=== PATIENT | female | born 1990 | race African-American/Black ===

== ENCOUNTER 2016-09-15 20:01 | Emergency (ER) | payer OTHER ==
[~2016-09-15] VITALS: Ht 165.1 cm; Wt 90.7 kg
[~2016-09-15 20:01] MED LIST: FERROUS SULFAT325 MG ORAL; FIORICET1 EA ORAL; FLAGYL500 MG ORAL; IBUPROFEN600 MG ORAL; TRAMADOL HCL50 MG ORAL; VIBRAMYCIN100 MG ORAL
--- NOTE | 2016-09-15 20:30 | Emergency Room Report ---
History of Present Illness General Chief Complaint: Flu Like Symptoms Source: Patient Present Illness HPI 26 YO female presents to the ED c/o Dry non productive cough , nasal congestion , and runny nose x 2 weeks with sore throat 9/10 in severity x 2 days. no fevers , reports chills. Pt states she has been coughing so regularly that she now has pain throughout the rib cage during episodes of coughing. denies recent travel or ill contacts. Pt. is 8 weeks . Pt denies neck pain or stiffness, denies abdominal pain, nausea, vomiting , constipation, diarrhea, urgency, dysuria or EVANS. Pt. states she has only been taking vitamins and hot water with lemon and mint. states she does not like to take OTC medications. Denies CP, Palpitations, LOC, AMS, dizziness, Changes in Vision, Sensation, paresthesias, or a sudden severe headache. Allergies: Coded Allergies: No Known Allergies (Unverified , 03/20/13) Patient History Past Medical History: see triage record Past Surgical History: none Pertinent Family History: none Last Menstrual Period: jul 21, 2016 Now: Yes : 5 Para: 2 Nursing Documentation-PMH Past Medical History: No Stated History Review of Systems All Other Systems: negative except mentioned in HPI Physical Exam Vital Signs Date Time Temp Pulse Resp B/P Pulse Ox O2 Delivery O2 Flow Rate FiO2 09/15/16 20:08 98.1 98 19 102/71 96 Room Air Sp02 EP Interpretation: reviewed, normal General Appearance: no apparent distress, alert, GCS 15, non-toxic Head: normocephalic, atraumatic Eyes: bilateral eye PERRL, bilateral eye normal inspection ENT: hearing grossly normal, normal pharynx, no angioedema, normal voice, nasal congestion - moderate nasal congestion, clear rhinorrhea noted, no TTP of the sinuses., pharyngeal erythema - pharyngeal erythema, no exudates, no tonsillar swelling, mild jacob stone appearance, no LAD. , other - left ear cerumen impaction Neck: full range of motion, no meningismus, supple/symm/no masses Respiratory: chest non-tender, lungs clear, normal breath sounds, no rhonchi, no respiratory distress, no retraction, no accessory muscle use, no wheezing, speaking full sentences, other - multiple bouts of dry highpitched coughs while attempting to answer ROS questions and durring PE. Cardiovascular #1: regular rate, rhythm, no edema Gastrointestinal: normal bowel sounds, non tender, soft, no guarding, no rebound Rectal: deferred Genitourinary: normal inspection, no CVA tenderness Musculoskeletal: back normal, gait/station normal, normal range of motion, non- tender, no calf tenderness Neurologic: alert, oriented x3, responsive, motor strength/tone normal, sensory intact, speech normal Psychiatric: judgement/insight normal, memory normal, mood/affect normal, no suicidal/homicidal ideation Skin: normal color, no rash, warm/dry, well hydrated Lymphatic: no adenopathy Medical Decision Making PA Attestation Dr. sanchez is my supervising Physician whom patient management has been discussed with. Diagnostic Impression: Primary Impression: Upper respiratory infection, acute ER Course Pt. presents to the ED c/o cough , nasal congestion, and runny nose x 2 weeks with sore throat x 2 days. no fevers, reports chills. Pt. is 8 weeks . Ddx considered but are not limited to URI, pneumonia, PE, strep pharyngitis, meningitis, pharyngitis Vital signs: Pt. is afebrile, the remaining VS are WNL H&PE are most consistent with URI- no meningeal signs, mild pharyngitis most likely secondary to post nasal drainage, no evidence of bacterial infection, and pt. does not meet centor criteria. ORDERS: none required at this time, the diagnosis is clinical ED INTERVENTIONS: None required at this time. --PT. EDUCATION: Limited use of medications due to , Discussed antibiotic resistance with inappropriate prescribing of antibiotics for viral illnesses. Discussed signs and symptoms to indicate viral illness versus bacterial illness. DISCHARGE: At this time pt. is stable for d/c to home. Will provide printed patient care instructions, and any necessary prescriptions. Care plan and follow up instructions have been discussed with the patient prior to discharge. Last Vital Signs Date Time Temp Pulse Resp B/P Pulse Ox O2 Delivery O2 Flow Rate FiO2 09/15/16 20:08 98.1 98 19 102/71 96 Room Air Disposition: HOME, SELF-CARE Condition: Stable Scripts Acetaminophen* (TYLENOL EXTRA STRENGTH*) 500 Mg Tablet 500 MG ORAL Q6H, #30 TAB 0 Refills Prov: Macrina Meneses P.A. 09/15/16 Albuterol Sulfate* (ALBUTEROL SULFATE MDI*) 8.5 Gm Hfa.aer.ad 2 PUFF INH Q3H, #1 INH 0 Refills Prov: Macrina Meneses 09/15/16 Patient Instructions: Upper Respiratory Infection, Adult, [id number] Additional Instructions: Take medications as directed. Follow up with PCP in 3days Return sooner to ED if new symptoms occur, or current symptoms become worse. Macrina Meneses Sep 15, 2016 20:30
[2016-09-15] MEDS ORDERED: TYLENOL EXTRA500 MG ORAL (20:32)
[2016-09-15] MEDS ORDERED: ALBUTEROL SULF8.5 GM INH (20:32)
[2016-09-15 20:40] VITALS: BP 112/81
[2016-09-15 20:45] VITALS: BP 112/81
== END 2016-09-15 20:47 | disposition home or self-care (01) ==
LOC: EMR 20:32
DX: O26.891 Other specified pregnancy related conditions, first trimester (principal); J06.9 Acute upper respiratory infection, unspecified; Z3A.08 8 weeks gestation of pregnancy
CPT/HCPCS: 99284